=== PATIENT | male | born 1990 | race African-American/Black ===

== ENCOUNTER 2023-07-29 02:39 | Emergency (ER) | payer OTHER ==
[~2023-07-29] VITALS: Ht 175.3 cm; Wt 77.0 kg
[2023-07-29 02:44] VITALS: BP 149/103; O2SAT 98
[2023-07-29] MEDS ORDERED: ACETAMINOPHEN 325MG TABLET PO ONE (03:30)
[2023-07-29] MEDS ORDERED: IBUP-2029 MT (04:20)
[2023-07-29 04:59] VITALS: PULSE 88; RESP 16; TEMP 98.3
== END 2023-07-29 05:00 ==
LOC: ER 02:39
DX: S52.611A Displaced fracture of right ulna styloid process, initial encounter for closed fracture (principal); S00.01XA Abrasion of scalp, initial encounter; Z88.8 Allergy status to other drugs, medicaments and biological substances; W51.XXXA Accidental striking against or bumped into by another person, initial encounter; Y93.89 Activity, other specified; Y92.89 Other specified places as the place of occurrence of the external cause; Y99.8 Other external cause status
CPT/HCPCS: 29125; 73110; 99284